=== PATIENT | female | born 1960 | race Caucasian/White ===

== ENCOUNTER → 2020-12-03 | Outpatient (CLI) | payer OTHER ==
[~2020-12-03] MED LIST: ADMELOG100 UNIT/1 SQ; ALBUTEROL0.63 MG/3 INH; AMARYL 2MG TABLE2 MG PO; AMITRIPTYLINE H25 MG PO; ASPIRIN CHEWABL81 MG PO; ATORVASTATIN CA80 MG PO; BASAGLAR K100 UNIT/1 SQ; BUSPAR 5MG TABLE5 MG PO; CELEXA10 MG PO; CLEARLAX119 GM PO; DOXAZOSIN MESYLA2 MG PO; ECOTRIN81 MG PO; FEOSOL325 MG PO; FISH OIL 1,0001 EAC4 PO; FUROSEMIDE20 MG PO; GLIMEPIRIDE4 MG PO; HYDRALAZINE HCL25 MG PO; HYDROCODON-ACE1 EAC6 PO; IRON325 M1 PO; LANTUS INS100 UTS/M1 SQ; LEVOFLOXACIN500 MG PO; LOPRESSOR 25 MG25 MG PO; METFORMIN HCL500 MG PO; METOPROLOL TART25 MG PO; MICRO-K EXTENCA8 MEQ PO; NEURONTIN 400400 MG PO; NITROSTAT0.4 MG SL; NORCO 10-325 T1 EACH PO; PLAVIX 75 MG TA75 MG PO; PROTONIX 40 MG40 M1 PO; PROTONIX40 MG PO; SENNA8.6 MG PO; SERTRALINE HCL50 MG PO; SPIRIVA RESPIMAT4 GM INH; STOOL SOFTENER100 MG PO; TRELEGY ELLIPT1 EACH INH; VANCOMYCIN HCL125 MG PO; ZETIA10 MG PO; ZOFRAN4 MG PO; ZOLOFT50 MG PO
== END ==
LOC: HEART CORB 11-26 08:30
DX: I25.10 Atherosclerotic heart disease of native coronary artery without angina pectoris (principal); I12.9 Hypertensive chronic kidney disease with stage 1 through stage 4 chronic kidney disease, or unspecified chronic kidney disease; E11.22 Type 2 diabetes mellitus with diabetic chronic kidney disease; N18.9 Chronic kidney disease, unspecified
CPT/HCPCS: 78452; 93306; A9502; J2785

== ENCOUNTER 2020-12-20 09:34 | Outpatient (CLI) | payer OTHER ==
[~2020-12-20] VITALS: Ht 157.5 cm; Wt 86.2 kg
[~2020-12-20 09:34] MED LIST changes: -AMITRIPTYLINE H25 MG PO; -BASAGLAR K100 UNIT/1 SQ; -CELEXA10 MG PO; -CLEARLAX119 GM PO; -DOXAZOSIN MESYLA2 MG PO; -ECOTRIN81 MG PO; -FISH OIL 1,0001 EAC4 PO; -FUROSEMIDE20 MG PO; -GLIMEPIRIDE4 MG PO; -HYDROCODON-ACE1 EAC6 PO; -IRON325 M1 PO; -METFORMIN HCL500 MG PO; -METOPROLOL TART25 MG PO; -MICRO-K EXTENCA8 MEQ PO; -PLAVIX 75 MG TA75 MG PO; -PROTONIX 40 MG40 M1 PO; -SENNA8.6 MG PO; -SERTRALINE HCL50 MG PO; -STOOL SOFTENER100 MG PO; -TRELEGY ELLIPT1 EACH INH; -ZETIA10 MG PO; -ZOFRAN4 MG PO
[2020-12-20] MEDS ORDERED: ADMELOG100 UNIT/1 SQ (11:01)
[2020-12-20] MEDS ORDERED: AMITRIPTYLINE H25 MG PO (11:02)
[2020-12-20] MEDS ORDERED: ATORVASTATIN CA80 MG PO (11:03)
[2020-12-20] MEDS ORDERED: ECOTRIN81 MG PO (11:03)
[2020-12-20] MEDS ORDERED: IRON325 M1 PO (11:04)
[2020-12-20] MEDS ORDERED: DOXAZOSIN MESYLA2 MG PO (11:04)
[2020-12-20] MEDS ORDERED: BASAGLAR K100 UNIT/1 SQ (11:04)
[2020-12-20] MEDS ORDERED: CELEXA10 MG PO (11:04)
[2020-12-20] MEDS ORDERED: METOPROLOL TART25 MG PO (11:05)
[2020-12-20] MEDS ORDERED: METFORMIN HCL500 MG PO (11:05)
[2020-12-20] MEDS ORDERED: HYDROCODON-ACE1 EAC6 PO (11:05)
[2020-12-20] MEDS ORDERED: PROTONIX 40 MG40 M1 PO (11:06)
[2020-12-20] MEDS ORDERED: ZOFRAN4 MG PO (11:06)
[2020-12-20] MEDS ORDERED: FISH OIL 1,0001 EAC4 PO (16:54)
[2020-12-20] MEDS ORDERED: SERTRALINE HCL50 MG PO (16:55)
[2020-12-20] MEDS ORDERED: CLEARLAX119 GM PO (16:56)
[2020-12-20] MEDS ORDERED: ZETIA10 MG PO (16:56)
[2020-12-20] MEDS ORDERED: FUROSEMIDE20 MG PO (16:57)
[2020-12-20] MEDS ORDERED: GLIMEPIRIDE4 MG PO (16:58)
[2020-12-20] MEDS ORDERED: HYDRALAZINE HCL25 MG PO (16:59)
[2020-12-20] MEDS ORDERED: SENNA8.6 MG PO (17:00)
[2020-12-20] MEDS ORDERED: MICRO-K EXTENCA8 MEQ PO (17:00)
[2020-12-20] MEDS ORDERED: STOOL SOFTENER100 MG PO (17:01)
[2020-12-20] MEDS ORDERED: TRELEGY ELLIPT1 EACH INH (17:11)
[2020-12-20 20:17] LABS: HEMOGLOBIN 12.7 gm/dl (12.3-15.3); RED BLOOD COUNT 4.07 M/UL (4.00-5.10); WHITE BLOOD COUNT 6.6 K/UL (4.5-11.0)
[2020-12-21 04:05] LABS: HEMOGLOBIN 11.9 gm/dl (12.3-15.3); RED BLOOD COUNT 3.91 M/UL (4.00-5.10); WHITE BLOOD COUNT 6.6 K/UL (4.5-11.0)
[2020-12-21] MEDS ORDERED: PLAVIX 75 MG TA75 MG PO (11:40)
== END 2020-12-21 12:24 | disposition home or self-care (01) ==
LOC: CATH 09:34 → PROG CARE 15:28 → CATH 12-21 12:24
PROVIDERS: Internal Medicine Interventional Cardiology
DX: T82.855A Stenosis of coronary artery stent, initial encounter (principal); I25.118 Atherosclerotic heart disease of native coronary artery with other forms of angina pectoris; I25.84 Coronary atherosclerosis due to calcified coronary lesion; I10 Essential (primary) hypertension; E78.5 Hyperlipidemia, unspecified; E11.9 Type 2 diabetes mellitus without complications; Z79.4 Long term (current) use of insulin; Z87.891 Personal history of nicotine dependence; Z82.49 Family history of ischemic heart disease and other diseases of the circulatory system; Z79.82 Long term (current) use of aspirin; Z98.61 Coronary angioplasty status; Y83.1 Surgical operation with implant of artificial internal device as the cause of abnormal reaction of the patient, or of later complication, without mention of misadventure at the time of the procedure; Z79.899 Other long term (current) drug therapy
CPT/HCPCS: 36415; 80048; 82550; 82553; 82962; 84484; 85025; 85347; 93005; 94664; 94760; 99152; 99153; C1725; C1769; C1874; C1887; C9600; J0360; J0461; J1170; J1644; J2250; J3010; J7030; J7040; Q9965